=== PATIENT | female | born 1965 | race Caucasian/White ===

== ENCOUNTER 2018-04-26 20:51 | Emergency (ER) | payer OTHER ==
[~2018-04-26] VITALS: Ht 154.9 cm; Wt 91.9 kg
[2018-04-26 20:54] VITALS: BP 159/89
--- NOTE | 2018-04-26 21:05 | NUR ---
PATIENT PRESENTS TO ED WITH C/O EDEMA TO LEFT LEG AND LEFT CALF PAIN X 1 DAY. DENIES TRAUMA. +EDEMA, -REDNESS TO LLE SKIN IS PINK/WARM/DRY; AAOX4 WITH EVEN AND STEADY GAIT; PATIENT STATES PAIN OF 8/10 AT THIS TIME; PATIENT POSITIONED FOR COMFORT; HOB ELEVATED; BEDRAILS UP X2; BED DOWN. ER MD MADE AWARE OF PT STATUS.
--- NOTE | 2018-04-26 21:29 | NUR ---
Dr. Pantoja evaluating patient at bedside.
[2018-04-26] MEDS ORDERED: IBUPROFEN 800 MG TAB PO ONE (21:35)
--- NOTE | 2018-04-26 22:17 | NUR ---
US exam completed at bedside by tech.
--- NOTE | 2018-04-26 23:15 | NUR ---
PT RESTING COMFORTABLY.
[2018-04-26] MEDS ORDERED: ACETAMINOPHEN EXTRA STRENGTH 500 MG TAB PO ONE (23:55)
[2018-04-27 00:42] VITALS: BP 124/70
--- NOTE | 2018-04-27 00:42 | NUR ---
Patient discharged with v/s stable. Written and verbal after care instructions given and explained. Patient alert, oriented and verbalized understanding of instructions. Ambulatory with steady gait. All questions addressed prior to discharge. ID band removed. Patient advised to follow up with PMD. Rx of IBUPROFEN AND TYLENOL WERE given. Patient educated on indication of medication including possible reaction and side effects. Opportunity to ask questions provided and answered.
== END 2018-04-27 00:42 | disposition home or self-care (01) ==
LOC: MED 20:51
DX: S86.912A Strain of unspecified muscle(s) and tendon(s) at lower leg level, left leg, initial encounter (principal); I87.2 Venous insufficiency (chronic) (peripheral); I10 Essential (primary) hypertension; Z88.5 Allergy status to narcotic agent; X58.XXXA Exposure to other specified factors, initial encounter; Y93.89 Activity, other specified; Y92.89 Other specified places as the place of occurrence of the external cause; Y99.8 Other external cause status
CPT/HCPCS: 73564; 93971; 99284; Q0092

== ENCOUNTER 2019-01-20 23:53 | Emergency (ER) | payer SELFPAY ==
[~2019-01-20] VITALS: Ht 154.9 cm; Wt 77.1 kg
--- NOTE | 2019-01-20 23:55 | NUR ---
TO BED # 03 AMBULATORY, REPORT GIVEN TO ARIADNA TRAN
[2019-01-20 23:59] VITALS: BP 132/78
--- NOTE | 2019-01-21 00:10 | NUR ---
DR. ALEXANDER AT BEDSIDE FOR EVALUATION.
[2019-01-21] MEDS ORDERED: traMADol 50 MG TAB PO ONE (00:15)
--- NOTE | 2019-01-21 00:22 | NUR ---
X-RAY AT BEDSIDE.
[2019-01-21] MEDS ORDERED: CYCLOBENZAPRINE 10 MG TAB PO ONE (00:30)
--- NOTE | 2019-01-21 01:05 | NUR ---
Patient discharged with v/s stable. Patient states she feels better and is ready to go home. Patient states 5/10 pain at this time, patient acting appropriatly. Written and verbal after care instructions given and explained. Patient alert, oriented and verbalized understanding of instructions. Ambulatory with steady gait. All questions addressed prior to discharge. ID band removed. Patient advised to follow up with PMD. Rx of Tramadol, and Flexeril given. Patient educated on indication of medication including possible reaction and side effects. Opportunity to ask questions provided and answered.
[2019-01-21 01:06] VITALS: BP 128/73
== END 2019-01-21 01:05 | disposition home or self-care (01) ==
LOC: MED 23:53
DX: M54.41 Lumbago with sciatica, right side (principal); M25.561 Pain in right knee; I10 Essential (primary) hypertension; Z88.5 Allergy status to narcotic agent
CPT/HCPCS: 73562; 99283

== ENCOUNTER 2019-12-03 12:38 | Inpatient (IN) | payer OTHER ==
[~2019-12-03] VITALS: Ht 154.9 cm; Wt 81.6 kg
[2019-12-03 12:41] VITALS: BP 111/57
[2019-12-03] MEDS ORDERED: DICYCLOMINE HCL LIQUID 20 MG, ALUMINUM HYD/MAG/SIMETHICONE 30 ML, LIDOCAINE VISCOUS 2% ... PO ONE ×3 (13:00)
[2019-12-03] MEDS ORDERED: ONDANSETRON 4 MG ODT PO ONE (13:00)
[2019-12-03] MEDS ORDERED: ALUMINUM HYD/MAG/SIMETHICONE 30 ML UDC ONE ×2 (13:07→20:53)
[2019-12-03] MEDS ORDERED: LIDOCAINE VISCOUS 2% 20 ML UDC ONE ×2 (13:07→20:52)
[2019-12-03] MEDS ORDERED: DICYCLOMINE HCL LIQUID 10 MG/5 ML UDC ONE ×2 (13:08→20:53)
[2019-12-03] MEDS ORDERED: KETOROLAC 30 MG/ML VIAL IVP ONE (14:30)
[2019-12-03] MEDS ORDERED: ORE25 PO (14:35)
[2019-12-03] MEDS ORDERED: ATEN50TA8 PO (14:35)
[2019-12-03 14:48] LABS: APPEARANCE,URINE CLEAR (CLEAR); BILIRUBIN,URINE NEGATIVE (NEGATIVE); BLOOD, URINE 1+ (NEGATIVE); COLOR,URINE YELLOW (YELLOW); LEUKOCYTE ESTERASE ,URINE NEGATIVE (NEGATIVE); NITRITE, URINE NEGATIVE (NEGATIVE); UGLUCOSE NEGATIVE (NEGATIVE)
[2019-12-03 14:48] LABS: BASOPHILS # (AUTO) 0.1 K/uL (0.00-0.22); BASOPHILS % (AUTO) 1.3 % (0.0-2.0); EOSINOPHILS # (AUTO) 0.1 K/uL (0-0.4); EOSINOPHILS % (AUTO) 1.8 % (0.0-4.0); HEMATOCRIT 41.4 % (36-48); HEMOGLOBIN 13.9 g/dL (12.0-16.0); LYMPHOCYTES # (AUTO) 1.9 K/uL (2.5-16.5); LYMPHOCYTES % (AUTO) 48.8 % (20.5-51.1); MEAN CORPUSCULAR HEMOGLOBIN 30 pg (27-31); MEAN CORPUSCULAR HGB CONC 34 g/dL (33-37); MEAN CORPUSCULAR VOLUME 88.1 fL (80-94); MONOCYTES # (AUTO) 0.4 K/uL (0.8-1.0); MONOCYTES % (AUTO) 11.3 % (1.7-9.3); NEUTROPHILS # (AUTO) 1.4 K/uL (1.8-7.7); NEUTROPHILS % (AUTO) 36.8 % (42.2-75.2); PLATELET COUNT (AUTO) 166 K/uL (140-450); RED BLOOD CELL COUNT(AUTO) 4.71 MIL/uL (4.20-5.40); RED CELL DISTRIBUTION WIDTH 13.6 % (11.6-13.7); WHITE BLOOD COUNT (AUTO) 3.9 K/uL (4.8-10.8)
[2019-12-03 15:09] LABS: ALBUMIN 3.5 g/dL (3.4-5.0); ANION GAP 9.3 (8-16); CARBON DIOXIDE 31.4 mmol/L (21-32); CREATININE 0.6 mg/dL (0.6-1.3); POTASSIUM 3.7 mmol/L (3.5-5.1); TOTAL BILIRUBIN 0.3 mg/dL (0.0-1.0)
[2019-12-03 15:49] LABS: WBC,URINE NONE SEEN /HPF (0-5)
[2019-12-03] MEDS ORDERED: DEXT 5% /NACL 0.9% 1,000 ML IV ONE (16:20)
[2019-12-03] MEDS ORDERED: ONDANSETRON 4 MG/2 ML VIAL IVP PRN (16:20)
[2019-12-03 16:59] LABS: PROTHROMBIN TIME 9.6 secs (10.8-13.4)
[2019-12-03 17:04] LABS: FREE T4 (FREE THYROXINE) 1.12 ng/dL (0.76-1.46); MAGNESIUM 2.2 mg/dL (1.8-2.4); PHOSPHORUS 3.9 mg/dL (2.5-4.9); THYROID STIMULATING HORMONE 1.33 uIU/mL (0.34-3.74)
[2019-12-03 18:33] VITALS: BP 134/73
[2019-12-03] MEDS: DEXT 5% /NACL 0.9% 1,000 ML IV SCH (18:50)
[2019-12-03] MEDS ORDERED: KETOROLAC 30 MG/ML VIAL IVP PRN (18:50)
[2019-12-03] MEDS ORDERED: DICYCLOMINE HCL LIQUID 10 MG/5 ML UDC PO ONE (19:10)
[2019-12-03] MEDS ORDERED: LIDOCAINE VISCOUS 2% 20 ML UDC PO ONE (19:10)
[2019-12-03] MEDS ORDERED: ALUMINUM HYD/MAG/SIMETHICONE 30 ML UDC PO ONE (19:10)
[2019-12-03] MEDS ORDERED: HYDROcodone/APAP 7.5/325 MG 1 TAB PO PRN (19:15)
[2019-12-03 20:24] LABS: BARBITURATE, URINE NEGATIVE ng/ml (NEG <=200); BENZODIAZEPINE, URINE NEGATIVE ng/mL (NEG <=200); CANNABINOID, URINE NEGATIVE ng/mL (NEG <=50); COCAINE, URINE NEGATIVE ng/mL (NEG <=300); OPIATE, URINE NEGATIVE ng/mL (NEG <=2000); PHENCYCLIDINE SCREEN,URINE NEGATIVE ng/mL (NEG <=25)
[2019-12-03] MEDS: PANTOPRAZOLE 40 MG TABEC PO SCH (20:58)
[2019-12-03] MEDS: DOCUSATE SODIUM 100 MG GELCAP PO SCH (21:00)
[2019-12-03] MEDS: HYDROmorphone 1 MG/ML AMP IVP PRN (21:39)
[2019-12-04] VITALS: BP 105/61
[2019-12-04] MEDS: DEXT 5% /NACL 0.9% 1,000 ML IV SCH ×4 (04:14→21:30)
[2019-12-04 06:52] LABS: EOSINOPHILS # (AUTO) 0.1 K/uL (0-0.4); EOSINOPHILS % (AUTO) 1.5 % (0.0-4.0); HEMATOCRIT 37.6 % (36-48); HEMOGLOBIN 12.6 g/dL (12.0-16.0); LYMPHOCYTES # (AUTO) 1.9 K/uL (2.5-16.5); LYMPHOCYTES % (AUTO) 48.8 % (20.5-51.1); MEAN CORPUSCULAR HEMOGLOBIN 30 pg (27-31); MEAN CORPUSCULAR HGB CONC 33 g/dL (33-37); MEAN CORPUSCULAR VOLUME 88.5 fL (80-94); MONOCYTES # (AUTO) 0.3 K/uL (0.8-1.0); MONOCYTES % (AUTO) 7.4 % (1.7-9.3); NEUTROPHILS # (AUTO) 1.6 K/uL (1.8-7.7); NEUTROPHILS % (AUTO) 41.3 % (42.2-75.2); PLATELET COUNT (AUTO) 150 K/uL (140-450); RED BLOOD CELL COUNT(AUTO) 4.25 MIL/uL (4.20-5.40); RED CELL DISTRIBUTION WIDTH 13.7 % (11.6-13.7); WHITE BLOOD COUNT (AUTO) 3.8 K/uL (4.8-10.8)
[2019-12-04 07:05] LABS: ANION GAP 10.4 (8-16); CARBON DIOXIDE 29.4 mmol/L (21-32); CREATININE 0.7 mg/dL (0.6-1.3); POTASSIUM 3.8 mmol/L (3.5-5.1)
[2019-12-04 07:33] LABS: CHOL/HDL RATIO 5.3 (1-4.5); MAGNESIUM 2.1 mg/dL (1.8-2.4); PHOSPHORUS 4.1 mg/dL (2.5-4.9)
[2019-12-04 08:00] VITALS: BP 118/67
[2019-12-04] MEDS: DOCUSATE SODIUM 100 MG GELCAP PO SCH ×2 (08:28→20:11)
[2019-12-04] MEDS: PANTOPRAZOLE 40 MG TABEC PO SCH ×2 (08:29→20:11)
[2019-12-04] MEDS ORDERED: ATENOLOL 50 MG TAB PO SCH (09:00)
[2019-12-04] MEDS ORDERED: HYDROCHLOROTHIAZIDE 25 MG TAB PO SCH (09:00)
[2019-12-04] MEDS: HYDROmorphone 1 MG/ML AMP IVP PRN (09:37)
[2019-12-04 16:00] VITALS: BP 117/72
[2019-12-04] MEDS ORDERED: FAMO-90 PO (17:56)
[2019-12-04] MEDS: ACETAMINOPHEN 325 MG TAB PO PRN (18:38)
[2019-12-05] VITALS: BP 92/54
[2019-12-05] MEDS: DEXT 5% /NACL 0.9% 1,000 ML IV SCH (00:48)
[2019-12-05] MEDS: ACETAMINOPHEN 325 MG TAB PO PRN (00:49)
[2019-12-05 06:22] LABS: BASOPHILS # (AUTO) 0.1 K/uL (0.00-0.22); EOSINOPHILS # (AUTO) 0.1 K/uL (0-0.4); EOSINOPHILS % (AUTO) 1.4 % (0.0-4.0); HEMATOCRIT 39.4 % (36-48); LYMPHOCYTES # (AUTO) 2.6 K/uL (2.5-16.5); LYMPHOCYTES % (AUTO) 48.4 % (20.5-51.1); MEAN CORPUSCULAR HEMOGLOBIN 29 pg (27-31); MEAN CORPUSCULAR HGB CONC 33 g/dL (33-37); MEAN CORPUSCULAR VOLUME 88.9 fL (80-94); MONOCYTES # (AUTO) 0.5 K/uL (0.8-1.0); MONOCYTES % (AUTO) 8.5 % (1.7-9.3); NEUTROPHILS # (AUTO) 2.2 K/uL (1.8-7.7); NEUTROPHILS % (AUTO) 40.7 % (42.2-75.2); PLATELET COUNT (AUTO) 171 K/uL (140-450); RED BLOOD CELL COUNT(AUTO) 4.43 MIL/uL (4.20-5.40); RED CELL DISTRIBUTION WIDTH 13.4 % (11.6-13.7); WHITE BLOOD COUNT (AUTO) 5.3 K/uL (4.8-10.8)
[2019-12-05 06:44] LABS: ANION GAP 11.8 (8-16); CREATININE 0.7 mg/dL (0.6-1.3); POTASSIUM 3.8 mmol/L (3.5-5.1)
[2019-12-05 06:54] LABS: MAGNESIUM 2.1 mg/dL (1.8-2.4); PHOSPHORUS 3.9 mg/dL (2.5-4.9)
[2019-12-05] MEDS ORDERED: NACL 0.9% 500 ML IV ONE (07:45)
[2019-12-05] MEDS ORDERED: ONDA4TAB PO (07:59)
[2019-12-05 08:32] VITALS: BP 125/67
== END 2019-12-05 09:40 | disposition home or self-care (01) | DRG 392 ==
LOC: MED 12:38 → MTU 16:28
PROVIDERS: ADMIT General Practice; ATTEND General Practice
DX: A08.4 Viral intestinal infection, unspecified (principal); I10 Essential (primary) hypertension; Z88.5 Allergy status to narcotic agent; Z90.710 Acquired absence of both cervix and uterus; G43.909 Migraine, unspecified, not intractable, without status migrainosus; M19.90 Unspecified osteoarthritis, unspecified site; Z90.49 Acquired absence of other specified parts of digestive tract; Z82.49 Family history of ischemic heart disease and other diseases of the circulatory system; E66.9 Obesity, unspecified; Z68.34 Body mass index [BMI] 34.0-34.9, adult; D72.819 Decreased white blood cell count, unspecified; R16.0 Hepatomegaly, not elsewhere classified; K76.0 Fatty (change of) liver, not elsewhere classified; E04.2 Nontoxic multinodular goiter; N28.89 Other specified disorders of kidney and ureter; T50.2X5A Adverse effect of carbonic-anhydrase inhibitors, benzothiadiazides and other diuretics, initial encounter; Y92.89 Other specified places as the place of occurrence of the external cause
CPT/HCPCS: 36415; 71045; 71270; 76536; 76700; 80048; 80053; 80305; 81001; 82150; 83036; 83690; 83735; 83880; 84100; 84439; 84443; 84484; 85025; 85610; 85730; 87081; 96374; 99285; J1170; J1885; J2405; J7042; Q0092; Q0162; Q9967